=== PATIENT | male | born 1990 | race Caucasian/White ===

== ENCOUNTER 2016-10-01 21:28 | Emergency (ER) | payer OTHER ==
[~2016-10-01] VITALS: Ht 172.7 cm; Wt 83.0 kg
[2016-10-01 21:30] VITALS: BP 137/109; PULSE 97; RESP 14; TEMP 97.8; O2SAT 100
--- NOTE | 2016-10-01 22:22 | PD ---
HPI Chief Complaint: GI Complaint Time Seen by Provider: 22:17 Travel History International Travel<30 days: No Contact w/Intl Traveler<30days: No Traveled to known affect area: No History of Present Illness HPI Patient 26-year-old male presents emergency department for evaluation of diarrhea now resolved. Patient states she missed a flight at school and needs a note to return to school that he was evaluated by a physician. Patient denies abdominal pain nausea or vomiting. Patient states that he had some diarrhea after think he had a bad meal earlier today now is resolved. Denies any abdominal surgeries denies any fevers denies any other complaints. He feels well despite his note to return to school. PFSH Past Medical History Medical History: Denies Significant Hx Tetanus Vaccination: Never Vaccinated Influenza Vaccination: No Past Surgical History Other Surgery: Yes (NOSE) Social History Alcohol Use: Yes (OCC) Tobacco Use: Yes (1/2 PPD) Substance Use: No Allergies-Medications (Allergen,Severity, Reaction): Coded Allergies: No Known Allergies (Unverified , 10/01/16) Reported Meds & Prescriptions Reported Meds & Active Scripts Active No Active Prescriptions or Reported Medications Review of Systems Except as stated in HPI: all other systems reviewed are Neg Physical Exam Narrative GENERAL: Well-developed well-nourished no apparent distress. Appears healthy. SKIN: Focused skin assessment warm/dry. HEAD: Atraumatic. Normocephalic. EYES: Pupils equal and round. No scleral icterus. No injection or drainage. ENT: No nasal bleeding or discharge. Mucous membranes pink and moist. NECK: Trachea midline. No JVD. CARDIOVASCULAR: Regular rate and rhythm. No murmur appreciated. RESPIRATORY: No accessory muscle use. Clear to auscultation. Breath sounds equal bilaterally. GASTROINTESTINAL: Abdomen soft, non-tender, nondistended. Hepatic and splenic margins not palpable. MUSCULOSKELETAL: No obvious deformities. No clubbing. No cyanosis. No edema. NEUROLOGICAL: Awake and alert. No obvious cranial nerve deficits. Motor grossly within normal limits. Normal speech. PSYCHIATRIC: Appropriate mood and affect; insight and judgment normal. Data Data Last Documented VS Vital Signs Date Time Temp Pulse Resp B/P Pulse Ox O2 Delivery O2 Flow Rate FiO2 10/01/16 21:30 97.8 97 14 137/109 100 Room Air MDM Medical Decision Making Medical Screen Exam Complete: Yes Emergency Medical Condition: Yes Differential Diagnosis Diarrhea, gastritis, gastroenteritis, infectious diarrhea Narrative Course Patient roomed emerged Department, he has no complaints of warrant workup at this time. I am happy to write him a note that he can return to school. 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 Discussed with the school has a problem with this that he needs to follow up the flight surgeon. He is not asking me to clear him for flight at this time only to return to school and a note stating that he was here in the emergency department to be evaluated. He is stable for discharge. Diagnosis Primary Impression: Diarrhea Qualified Code: R19.7 - Diarrhea, unspecified type Departure Forms: School Release Return to School Date: Oct 02, 2016 Scripts No Active Prescriptions or Reported Meds Disposition: 01 DISCHARGE HOME Condition: Stable Prem Singh MD Oct 01, 2016 22:22
== END 2016-10-01 22:32 | disposition home or self-care (01) ==
LOC: NEPD 21:28
DX: R19.7 Diarrhea, unspecified (principal); F17.210 Nicotine dependence, cigarettes, uncomplicated
CPT/HCPCS: 99281